=== PATIENT | female | born 1975 | race Caucasian/White ===

== ENCOUNTER 2020-10-25 12:50 | Emergency (ER) | payer OTHER ==
[~2020-10-25] VITALS: Ht 162.6 cm; Wt 100.0 kg
[~2020-10-25 12:50] MED LIST: CLINDAMYCIN
[2020-10-25 13:57] LABS: EOSINOPHILS % 7.2 % (0.0-5.0); LYMPHOCYTES % 29.7 % (20.0-50.0); MEAN CORPUSCULAR HEMOGLOBIN 16.9 pg (28.0-32.0); MEAN CORPUSCULAR VOLUME 57.2 fL (81.0-99.0); MEAN PLATELET VOLUME 9.7 fl (7.4-10.4); MONOCYTES % 8.2 % (2.0-8.0); NEUTROPHILS % 53.9 % (40.0-76.0); PLATELET 277 x1000/uL (130-400); RED BLOOD CELL COUNT 3.53 mill/uL (4.2-5.4); RED CELL DISTRIBUTION WIDTH 21.7 % (11.6-14.6)
[2020-10-25 14:01] LABS: HEMATOCRIT. 20.2 % (36.0-48.0)
[2020-10-25 14:02] LABS: CHLORIDE 111 mEq/L (98-107)
[2020-10-25 14:11] LABS: PLATELET ESTIMATE NORMAL
[2020-10-25 15:23] LABS: TOTAL IRON BINDING CAPACITY 519 ug/dL (250-450)
[2020-10-25] MEDS ORDERED: ACETAMINOPHEN 325MG TABLET PO ONE (19:00)
[2020-10-25 19:09] VITALS: BP 128/41
== END 2020-10-25 19:11 | disposition home or self-care (01) ==
LOC: ER 12:50
DX: D64.9 Anemia, unspecified (principal)
CPT/HCPCS: 36415; 71045; 80053; 83540; 83550; 85025; 86850; 86880; 86900; 86901; 86920; 93005; 99285; J7040; Z7610; P9016